=== PATIENT | female | born 1950 | race Hispanic/Latino ===

== ENCOUNTER → 2018-01-15 | Outpatient (CLI) | payer MEDICARE ==
[~2018-01-15] MED LIST: BENICAR20 MG PO; NORCO 10-325 T1 EACH PO; ULTRAM50 MG PO
--- NOTE | 2018-01-15 12:34 | Diagnostic Imaging Report ---
History: Left-sided head and neck pain Comparison studies: None Technique: Sagittal T2; axial DWI, FLAIR, MPGR, T1, Coronal FLAIR. Intravenous contrast: None Findings: Scalp: Normal in signal . No masses . Bone marrow: Normal in signal intensity. Extra-axial: No masses, no fluid collections. Brain sulci: Appropriate for age. Ventricles: Normal in size . No hydrocephalus . Parenchyma: Few T2/flair hyperintensities of the periventricular and the white matter and central anabel. 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 No masses, hemorrhage, acute or chronic vascular insults. Suprasellar region: No abnormalities. Craniocervical junction: No abnormalities. Patent foramen magnum. No Chiari one malformation. Vessels: Normal flow-voids in the arteries and sinuses. IMPRESSION: 1. No acute abnormalities. 2. Mild chronic microvascular ischemic changes of the white matter. Signed by: DR Cesar Rodriguez M.D. on 01/15/2018 12:30 PM
== END ==
LOC: MRI 10:08
PROVIDERS: ATTEND Family Medicine
DX: R51 Headache (principal)
CPT/HCPCS: 70551

== ENCOUNTER → 2019-03-23 | Day surgery (SDC) | payer MEDICARE ==
[2019-03-21 10:22] LABS: BASOPHILS % 0.3 % (0.0-1.0); EOSINOPHILS # (AUTO) 0.1 (0.0-0.4); EOSINOPHILS % 0.9 % (0.0-6.0); HEMATOCRIT 42.1 % (34.2-44.1); HEMOGLOBIN 13.9 g/dL (12.0-16.0); LYMPHOCYTES # (AUTO) 2.7 (1.0-3.2); LYMPHOCYTES % 36.1 % (18.0-39.1); MEAN CORPUSCULAR HEMOGLOBIN 31.2 pg (28-32); MEAN CORPUSCULAR VOLUME 94.4 fL (81-99); MONOCYTES # (AUTO) 0.5 (0.2-0.8); MONOCYTES % 7.2 % (4.4-11.3); NEUTROPHILS # (AUTO) 4.2 (2.1-6.9); PLATELET COUNT 245 x10e3/uL (140-360); RED BLOOD COUNT 4.46 x10e6/uL (3.6-5.1); RED CELL DISTRIBUTION WIDTH 13.3 % (11.7-14.4)
[~2019-03-23] MED LIST changes: +HYOSCYAMINE 0.125 MG TAB ONE; +LIDOCAINE HCL 2% LOCAL INJ 5 ML SDV VIAL INJ ONE; +METFORMIN HCL500 MG PO; +MIDAZOLAM HCL 2 MG/2 ML VIAL ONE; +ONDANSETRON HCL INJ 2MG/ML 2ML 2 MG/ML VIAL ONE; +PROPOFOL IV EMULSION 10 MG/ML 50 ML VIAL ONE; +SIMVASTATIN20 MG PO
--- OUTSIDE RECORDS SUMMARY | 2019-03-23 07:56 | XMS REPORT ---
[facility] Address Unknown Phone Unavailable Care Team Providers Care Studio Artist Name Role Phone MICHA KAMARA Unavailable Unavailable Payers Payer Name Policy Type Policy Number Effective Date Expiration Date Problems This patient has no known problems. Allergies, Adverse Reactions, Alerts Allergy Name Allergy Type Status Severity Reaction(s) Onset Date Inactive Date Treating Clinician Comments propoxyphene napsylate DA Active SV 2016-11-27 00:00:00 morphine DA Active MA 2016-11-27 00:00:00 Medications This patient has no known medications. Results Test Description Test Time Test Comments Text Results Atomic Results Result Comments - XR WRIST 3 + V LT 2018-09-19 12:39:00 Name: SADE [facility] 1950 Age/S:68 /F [address] [facility] Unit#:[id number] Loc: [place] [address] Phys: Roberto Carlos Oro MD Dis Date: PHONE #: [phone] Status: REG ER FAX #: [phone] Exam Date: 09/19/2018 Reason: fall today, left wrist swelling and pain Report Has Been Amended EXAMS: CPT CODE: [id number] XR WRIST 3 + V LT [address]25 Addendum - 09/19/2018 SIGNED 09/19/2018 ADDENDUM: [id number] ADDENDUM: The impression should read as following: No acute fracture or dislocation. Degenerative changes. at 1239 Reported and signed by: Deyvi Srinivasan M.D. Transcribed: 09/19/2018 (3086) [email or web address] Report HISTORY: Fall and pain. COMPARISON: None available 3 views of the left wrist: No acute fracture or dislocation. Wrist joint is preserved. Narrowed 1st and 2nd carpometacarpal joint spaces with marginal osteophytes. No AVN of the lunate or the scaphoid b ones. Subchondral cysts within the waist of the scaphoid. No joint fluid is visible. Mineralization and soft tissues are normal. IMPRESSION: Fracture or dislocation. Mild changes. at 1223 Reported and signed by: Deyvi Srinivasan M.D. CC: Roberto Carlos Oro MD Technologist: Patricia Tuttle Trnscrpt Data: 09/19/2018 (4220) [email or web address] Orig Print D/T: S: 09/19/2018 (9473) PAGE 1 Signed Report - XR WRIST 3 + V LT 2018-09-19 12:23:00 Name: SADE DORADO [facility] : 1950 Age/S:68 /F [address] [facility] Unit#:[id number] Loc: [place] [address] Phys: Roberto Carlos Oro MD Dis Date: PHONE #: [phone] Status: REG ER FAX #: [phone] Exam Date: 09/19/2018 Reason: fall today, left wrist swelling and pain EXAMS: CPT CODE: [id number] XR WRIST 3 + [place] LT [address]82 HISTORY: Fall and pain. COMPARISON: None available 3 views of the left wrist: No acute fracture or dislocation. Wrist joint is preserved. Narrowed 1st and 2nd carpometacarpal joint spaces with marginal osteophytes. No AVN of the lunate or the scaphoid bones. Subchondral cysts within the waist of the scaphoid. No joint fluid is visible. Mineralization and soft tissues are normal. IMPRESSION: Fracture or dislocation. Mild changes. at 1223 Reported and signed by: Deyvi Srinivasan M.D. CC: Roberto Carlos Oro MD Technologist: Patricia Tuttle Trnscrpt Data: 09/19/2018 (1223) [email or web address] Orig Print D/T: S: 09/19/2018 (8599) PAGE 1 Signed Report MRI BRAIN WO 2018-01-15 12:01:00 [place] [address] Patient Name: SADE DORADO MR #: [id number] : 1950 Age/Sex: 67/F Req #: [id number] Adm Physician: Ordered by: MICHA KAMARA MD Report #: [id number] Location: MRI Room/Bed: Procedure: [id number] MRI/MRI BRAIN WO Exam Date: Exam Time: REPORT STATUS: Signed History: Left- sided head and neck pain Comparison studies: None Technique: Sagittal T2; axial DWI, FLAIR, MPGR, T1, Coronal FLAIR. Intravenous contrast: None Findings: Scalp: Normal in signal . No masses . Bone marrow: Normal in signal intensity. Extra-axial: No masses, no fluid collections. Brain sulci: Appropriate for age. Ventricles: Normal in size . No hydrocephalus . Parenchyma: Few T2/flair hyperintensities of the periventricular and the white matter and central anabel. 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 No masses, hemorrhage, acute or chronic vascular insults. Suprasellar region: No abnormalities. Craniocervical junction: No abnormalities. Patent foramen magnum. No Chiari one malformation. Vessels: Normal flow-voids in the arteries and sinuses. IMPRESSION: 1. No acute abnormalities. 2. Mild chronic microvascular ischemic changes of the white matter. Signed by: DR Cesar Rodriguez M.D. on 01/15/2018 12:30 PM Dictated By: CESAR LAMAR MD 1230 Transcribed By: SAVANNAH on 01/15/18 1230 COPY TO: MICHA KAMARA MD MRI SPINE CERVICAL WO [place] [address] Patient Name: SADE DORADO MR #: [id number] : 1950 Age/Sex: 67/F Req #: [id number] Adm Physician: Ordered by: MICHA KAMARA MD Report #: [id number] Location: MRI Room/Bed: Procedure: [id number] MRI/MRI SPINE CERVICAL WO Exam Date: 05/05/17 Exam Time: 1445 REPORT STATUS: Signed Exam: Cervical spine MRI without IV contrast History: Neck pain, radiates to the left upper back. Comparison studies: None Technique: Sagittal T1, T2 and IR, axial T2, axial gradient echo and axial T1. Intravenous contrast: None Findings: Alignment: Normal lordosis. No scoliosis. Cervicomedullary junction: No abnormalities. Patent foramen magnum. Soft tissues: No T2 hyperintense inflammatory changes. Spinal cord: Normal in size and signal from the foramen magnum through T1. Vertebrae: No fractures, infection or neoplasm. Degenerative changes: C2-C3: Mildly degenerated disc. Mild left facet arthrosis. Patent canal and foramina. C3-C4: Mildly degenerated disc. Small right central disc protrusion with annular fissure does not result in canal stenosis or nerve root impingement. Mild left facet arthrosis. Patent foramina. C4-C5: Mildly degenerated disc. Patent canal and foramina. C5-C6: Mildly degenerated disc. Disc osteophyte complex, mildly thickened ligamentum flavum, uncovertebral arthrosis and left facet arthrosis with mild canal stenosis and moderate left and mild right foraminal stenosis. C6-C7: Moderately degenerated disc. Disc osteophyte complex, mildly thickened ligamenta flava and uncovertebral arthrosis moderate bilateral foraminal stenosis and very mild canal stenosis. C7-T1: Mild bilateral facet arthrosis. Patent canal and foramina. IMPRESSION: 1. Moderate degenerative foraminal stenosis on the left at C5-C6 and bilaterally at C6-C7. 2. Moderately degenerated C6-C7 disc. 3. Small C3-C4 disc protrusion with annular fissure. 4. No significant canal stenosis. Signed by: Dr. Sommer Hardy M.D. on 05/06/2017 10:00 AM Dictated By: SOMMER HARDY MD 1000 Transcribed By: SAVANNAH on 05/06/17 1000 COPY TO: MICHA KAMARA MD
[2019-03-23 12:15] VITALS: BP 121/71
--- NOTE | 2019-03-23 16:08 | Operative Report ---
DATE OF PROCEDURE: 03/23/2019 SURGEON: Pranav Dye MD PROCEDURE: Colonoscopy with polypectomy. INDICATIONS FOR COLONOSCOPY: Surveillance colonoscopy, personal history of colon polyps. MEDICATIONS: The patient was done under MAC, please see anesthesiologist's note. PROCEDURE IN DETAIL: With the patient in the left lateral decubitus position, a flexible fiberoptic Olympus colonoscope was inserted into the rectum with ease and advanced all the way to the cecum. The scope was then withdrawn slowly, mucosa overlying the cecum, ascending colon, and transverse colon appeared to be within normal limits. One polyp was hot biopsied and one polyp was snared from the descending colon. The sigmoid and the rectum appeared to be within normal limits. The scope was then retroflexed into the distal rectum and small internal hemorrhoids were noted, none of which was actively bleeding. The scope was then straightened out, it was subsequently withdrawn, and the patient tolerated the procedure well. IMPRESSION: 1. Descending colon polyps x2, one snared and one hot biopsied. 2. Internal hemorrhoids, none actively bleeding. PLAN: Follow up histology. Initiate high-fiber, low-fat diet. Initiate high-fiber supplement. The patient might benefit from a followup colonoscopy in 3 to 5 years. Pranav Dye MD [facility] [place] /[id number] cc: Micah Rodriguez MD
== END | disposition home or self-care (01) ==
LOC: OR 07:49
PROVIDERS: ATTEND Internal Medicine Gastroenterology
DX: K52.9 Noninfective gastroenteritis and colitis, unspecified (principal); D12.4 Benign neoplasm of descending colon; Z86.010 Personal history of colon polyps; Z01.810 Encounter for preprocedural cardiovascular examination; Z01.812 Encounter for preprocedural laboratory examination; E11.9 Type 2 diabetes mellitus without complications; I10 Essential (primary) hypertension; K64.8 Other hemorrhoids; Z88.5 Allergy status to narcotic agent; M19.90 Unspecified osteoarthritis, unspecified site; R15.2 Fecal urgency; Z68.41 Body mass index [BMI] 40.0-44.9, adult; Z71.3 Dietary counseling and surveillance; Z79.84 Long term (current) use of oral hypoglycemic drugs
CPT/HCPCS: 36415 ×2; 45384; 45385; 82948; 85025; 88305; 93005; J2001; J2250; J2405; J2704; 45378

== ENCOUNTER → 2020-02-14 | Outpatient (CLI) | payer MEDICARE ==
[~2020-02-14] MED LIST changes: -HYOSCYAMINE 0.125 MG TAB ONE; -LIDOCAINE HCL 2% LOCAL INJ 5 ML SDV VIAL INJ ONE; -MIDAZOLAM HCL 2 MG/2 ML VIAL ONE; -ONDANSETRON HCL INJ 2MG/ML 2ML 2 MG/ML VIAL ONE; -PROPOFOL IV EMULSION 10 MG/ML 50 ML VIAL ONE
--- NOTE | 2020-02-14 11:57 | Diagnostic Imaging Report ---
Cervical spine 5 views complete INDICATION: ^[id number] ^1120 ^NECK PAIN Comparison: None available. Discussion: There is preservation of the normal cervical lordosis and alignment on AP view. No grossly displaced fracture deformity is identified. The odontoid is not well visualized. Prevertebral soft tissues are within normal limits. There are severe multilevel degenerative changes, most prominent at C5-6, C6-7 and C7-T1 with disc-osteophyte complexes and uncovertebral/facet arthropathy. Oblique views are noted in concerning for mid to lower cervical neural foraminal stenosis at the aforementioned levels. Surrounding soft tissues are unremarkable. IMPRESSION: Severe degenerative changes from C5-6 to C7-T1 as described above. There is concern for bilateral neuroforaminal stenosis at these levels. Consider follow-up MRI for further evaluation. Signed by: Piyush Miller MD on 02/14/2020 11:54 AM
--- NOTE | 2020-02-14 12:21 | Diagnostic Imaging Report ---
Right shoulder, 2 views INDICATION: ^[id number] ^1120 ^RIGHT SHOULDER PAIN Comparison: None available. Discussion: Limited evaluation. AP radiographs of the shoulder in internal and rotation are obtained. Negative for grossly displaced fracture. Glenohumeral joint space is well maintained. There are severe degenerative changes of the acromioclavicular joint with downward spurring. Sclerosis and hypertrophy of the greater tuberosity are noted. Visualized lung parenchyma is clear. Soft tissues are unremarkable. IMPRESSION: Moderate to severe degenerative change of the acromio clavicular joint with downward spurring and sclerosis/hypertrophy of the greater tuberosity which can be seen in patients with rotator cuff tendinopathy/impingement. No grossly displaced fracture of the right shoulder. Signed by: Piyush Miller MD on 02/14/2020 12:18 PM
== END ==
LOC: RAD 11:18
PROVIDERS: ATTEND Internal Medicine
DX: M25.511 Pain in right shoulder (principal); M54.2 Cervicalgia
CPT/HCPCS: 72050

== ENCOUNTER → 2020-02-27 | Outpatient (CLI) | payer MEDICARE ==
--- NOTE | 2020-02-27 15:51 | Diagnostic Imaging Report ---
History: Neck and bilateral arm pain (right arm or than left). Comparison studies: Cervical spine MRI 05/05/2017 and cervical spine x-ray 02/14/2020. Technique: Sagittal T1, T2 and IR, axial T2 and axial gradient echo Intravenous contrast: None Findings: Alignment: Normal lordosis. No scoliosis. Cervicomedullary junction: No abnormalities. Patent foramen magnum. Soft tissues: No T2 hyperintense inflammatory changes. Spinal cord: Normal in size and signal from the foramen magnum through T1. Vertebrae: No fractures, infection or neoplasm. Degenerative changes: C2-C3: Mildly degenerated disc and left facet arthrosis are unchanged. No significant canal or foraminal stenosis. C3-C4: Mildly degenerated disc. Small asymmetric right disc osteophyte complex does not result significant canal stenosis. Bilateral uncovertebral and left facet arthrosis without significant foraminal stenosis. Previous annular fissure is no longer visualized. C4-C5: Mildly degenerated disc. Patent canal and foramina. C5-C6: Mildly degenerated disc. Disc osteophyte complex, thickened ligamentum flavum, uncovertebral arthrosis and facet arthrosis contribute to mild canal stenosis and moderate left and mild right foraminal stenosis which is unchanged. C6-C7: Moderately degenerated disc. And disc osteophyte complex, thickened ligamentum flavum, uncovertebral arthrosis contribute to mild canal stenosis and moderate bilateral foraminal stenosis which is unchanged. C7-T1: Mildly degenerated disc with bilateral facet arthrosis without significant canal or foraminal stenosis. Incidental findings: Small bilateral T2 hyperintense thyroid nodules or cysts. Largest nodule or cyst in the right thyroid lobe measures 13 mm and is unchanged. IMPRESSION: 1. No significant changes from the prior cervical spine MRI of 05/05/2017. 2. Multilevel disc degeneration, worse/moderate at C6-C7. 3. Mild degenerative canal stenosis at C5-C6 and at C6-C7. 4. Moderate degenerative foraminal stenosis on the left at C5-C6 and bilaterally at C6-C7. Signed by: Dr. William Hardy M.D. on 02/27/2020 3:47 PM
== END ==
LOC: MRI 07:50
PROVIDERS: ATTEND Internal Medicine
DX: R94.8 Abnormal results of function studies of other organs and systems (principal); M54.2 Cervicalgia
CPT/HCPCS: 72141

== ENCOUNTER → 2021-09-30 | Outpatient (CLI) | payer MEDICARE | LOC: CT 09:40 | PROVIDERS: ATTEND Internal Medicine | DX: M54.50 Low back pain, unspecified (principal); R41.3 Other amnesia | CPT/HCPCS: 70450; 72100 ==

== ENCOUNTER → 2021-12-31 | Day surgery (SDC) | payer MEDICARE ==
[2021-12-30 11:51] LABS: BASOPHILS % 0.4 % (0.0-1.0); EOSINOPHILS # (AUTO) 0.1 (0.0-0.4); EOSINOPHILS % 0.8 % (0.0-6.0); HEMATOCRIT 43.3 % (34.2-44.1); HEMOGLOBIN 13.9 g/dL (12.0-16.0); LYMPHOCYTES # (AUTO) 2.8 (1.0-3.2); LYMPHOCYTES % 37.7 % (18.0-39.1); MEAN CORPUSCULAR HEMOGLOBIN 30.8 pg (28-32); MEAN CORPUSCULAR HGB CONC 32.1 g/dL (31-35); MONOCYTES # (AUTO) 0.6 (0.2-0.8); MONOCYTES % 8.7 % (4.4-11.3); NEUTROPHILS # (AUTO) 3.8 (2.1-6.9); NEUTROPHILS % 52.1 % (38.7-80.0); PLATELET COUNT 228 x10e3/uL (140-360); RED BLOOD COUNT 4.51 x10e6/uL (3.6-5.1); RED CELL DISTRIBUTION WIDTH 13.4 % (11.7-14.4)
[~2021-12-31] MED LIST changes: +GLUCAGON FOR INJ 1 MG VIAL ONE; +HYOSCYAMINE SULFATE 0.5 MG/ML INJ ONE; +MYRBETRIQ50 MG PO; +POVIDONE IODINE 0.05% 0.05 % ML PO ONE; +PROPOFOL IV EMULSION 10 MG/ML 50 ML VIAL IV ONE
[2021-12-31 15:40] VITALS: BP 132/80
[2021-12-31 16:28] LABS: WBC,FECAL (FECAL LACTOFERRIN) NEGATIVE (NEGATIVE)
== END | disposition home or self-care (01) ==
LOC: OR 12:39
PROVIDERS: ATTEND Internal Medicine Gastroenterology
DX: K52.9 Noninfective gastroenteritis and colitis, unspecified (principal); K63.5 Polyp of colon; K62.89 Other specified diseases of anus and rectum; K64.8 Other hemorrhoids; K21.9 Gastro-esophageal reflux disease without esophagitis; Z71.3 Dietary counseling and surveillance; I10 Essential (primary) hypertension; M54.2 Cervicalgia; F41.9 Anxiety disorder, unspecified; Z88.6 Allergy status to analgesic agent; Z01.810 Encounter for preprocedural cardiovascular examination; Z01.812 Encounter for preprocedural laboratory examination; Z20.822 Contact with and (suspected) exposure to COVID-19; Z79.899 Other long term (current) drug therapy; Z68.43 Body mass index [BMI] 50.0-59.9, adult
CPT/HCPCS: 0223U; 36415; 45380; 83630; 83993; 85025; 87045; 87177; 87324; 87328; 87449; 87493; 93005; J1610; J1980

== ENCOUNTER 2024-04-12 12:42 | Emergency (ER) | payer MEDICARE ==
[~2024-04-12] VITALS: Ht 162.6 cm; Wt 104.0 kg
[~2024-04-12 12:42] MED LIST changes: -GLUCAGON FOR INJ 1 MG VIAL ONE; -HYOSCYAMINE SULFATE 0.5 MG/ML INJ ONE; -POVIDONE IODINE 0.05% 0.05 % ML PO ONE; -PROPOFOL IV EMULSION 10 MG/ML 50 ML VIAL IV ONE
[2024-04-12] MEDS ORDERED: METOPROLOL SUCC25 MG PO (13:05)
[2024-04-12] MEDS ORDERED: ASPIRIN EC81 MG PO (13:05)
[2024-04-12] MEDS ORDERED: PLAVIX75 MG PO ×2 (13:05→16:42)
[2024-04-12] MEDS: SODIUM CHLORIDE 0.9% 500ML 500 ML IV ONE (13:27)
[2024-04-12] MEDS: CEFTRIAXONE 1 GM VIAL IM ONE (13:27)
[2024-04-12 16:40] VITALS: PULSE 89; RESP 16; TEMP 98.4; O2SAT 97
[2024-04-12] MEDS ORDERED: MACROBID 100 M100 MG PO (16:41)
[2024-04-12] MEDS ORDERED: XARELTO20 MG PO (16:42)
== END 2024-04-12 17:06 | disposition home or self-care (01) ==
LOC: FSED 12:46
DX: R30.0 Dysuria (principal); N39.0 Urinary tract infection, site not specified; I48.92 Unspecified atrial flutter; I10 Essential (primary) hypertension; I48.91 Unspecified atrial fibrillation; I25.10 Atherosclerotic heart disease of native coronary artery without angina pectoris; F41.9 Anxiety disorder, unspecified; M25.562 Pain in left knee; G89.29 Other chronic pain; R94.31 Abnormal electrocardiogram [ECG] [EKG]; Z96.652 Presence of left artificial knee joint; Z95.5 Presence of coronary angioplasty implant and graft
CPT/HCPCS: 74176; 80053; 81003; 82553; 84484; 85025; 93005; 99284; J0696; J7040

== ENCOUNTER 2024-05-09 10:35 | Emergency (ER) | payer MEDICARE ==
[~2024-05-09] VITALS: Ht 162.6 cm; Wt 104.0 kg
[~2024-05-09 10:35] MED LIST changes: +ASPIRIN EC81 MG PO; +MACROBID 100 M100 MG PO; +METOPROLOL SUCC25 MG PO; +PLAVIX75 MG PO; +XARELTO20 MG PO
[2024-05-09] MEDS ORDERED: ATORVASTATIN CA10 MG PO (11:07)
[2024-05-09] MEDS ORDERED: SPIRONOLACTONE25 MG PO (11:07)
[2024-05-09] MEDS: SODIUM CHLORIDE 0.9% 1000ML 1,000 ML IV ONE (11:36)
[2024-05-09] MEDS: ONDANSETRON HCL INJ 2MG/ML 2ML 2 MG/ML VIAL IV STA (11:36)
[2024-05-09] MEDS: DILTIAZEM HCL 5 MG/ML 5 ML VIAL IV ONE (11:37)
[2024-05-09] MEDS ORDERED: IOPAMIDOL 370 MG/ML 100 ML INFUS..BTL INJ ONE (13:41)
[2024-05-09] MEDS: METOCLOPRAMIDE HCL 10 MG/2ML VIAL IV ONE ×2 (13:47→21:53)
[2024-05-09 16:53] VITALS: RESP 20; TEMP 98.2
[2024-05-09] MEDS ORDERED: DILTIAZEM HCL 5 MG/ML 5 ML VIAL IV ONE (17:00)
[2024-05-09] MEDS ORDERED: DILTIAZEM HCL VIAL 5 ML ONE (17:00)
[2024-05-09] MEDS: DILTIAZEM HCL 5 MG/ML 5 ML VIAL IV STA (17:29)
[2024-05-09 17:35] VITALS: BP 156/95; PULSE 86
[2024-05-09] MEDS: METOPROLOL TARTRATE 50 MG TAB PO SCH (17:35)
[2024-05-09 21:53] VITALS: PULSE 82; RESP 18; TEMP 98.3; O2SAT 96
[2024-05-10] MEDS ORDERED: METOPROLOL TARTRATE 50 MG TAB PO SCH (09:00)
== END 2024-05-09 16:54 | disposition short-term general hospital (02) ==
LOC: FSED 10:50
DX: R11.2 Nausea with vomiting, unspecified (principal); I48.91 Unspecified atrial fibrillation; S35.402A Unspecified injury of left renal artery, initial encounter; J90 Pleural effusion, not elsewhere classified; J98.11 Atelectasis; Z11.52 Encounter for screening for COVID-19; Z79.01 Long term (current) use of anticoagulants
CPT/HCPCS: 0223U; 71045; 74177; 80053; 81003; 82553; 84484; 85025; 87400; 96374; 96375; 99283; J2765; Q9967